=== PATIENT | female | born 1945 | race Caucasian/White ===

== ENCOUNTER 2018-08-05 15:54 | Outpatient (CLI) | payer MEDICARE | END 2018-08-05 15:55 | disposition home or self-care (01) | LOC: BICMAMMO 15:54 | PROVIDERS: ATTEND Internal Medicine Geriatric Medicine | DX: Z12.31 Encounter for screening mammogram for malignant neoplasm of breast (principal) | CPT/HCPCS: 77063; 77067 ==

== ENCOUNTER 2018-11-25 14:22 | Outpatient (CLI) | payer MEDICARE ==
--- NOTE | 2018-11-25 16:18 | BD ---
Exam: DEXA Bone Density 11/25/18 COMPARISON: 03/28/16. HISTORY: 73-year-old postmenopausal female for screening. Lumbar Spine: BMD (g/cm2) L1 0.798 T-Score: -1.7 L2 0.806 T-Score: -2.0 L3 0.936 T-Score: -1.3 L4 0.987 T-Score: -0.7 L1-L4 0.881 T-Score: -1.5 Left Femoral Neck: 0.633 T-Score: -1.9 Total Proximal Femur: 0.835 T-Score: -0.9 Impression: Osteopenia. This patient has a ten year WHO fracture risk of a major osteoporotic fracture of 13% and hip fracture of 3.3%. POS: ROBERT
== END 2018-11-25 14:23 | disposition home or self-care (01) ==
LOC: BICMAMMO 14:22
PROVIDERS: ATTEND Internal Medicine Geriatric Medicine
DX: Z13.820 Encounter for screening for osteoporosis (principal); M85.89 Other specified disorders of bone density and structure, multiple sites; Z78.0 Asymptomatic menopausal state
CPT/HCPCS: 77080

== ENCOUNTER 2019-01-01 10:22 | Outpatient (CLI) | payer MEDICARE ==
--- NOTE | 2019-01-01 12:11 | MRI ---
EXAM: Left shoulder MRI without contrast: HISTORY: Impingement syndrome of left shoulder, left shoulder pain, injury from a fall in October 2018 COMPARISON: None FINDINGS: Multiplanar, multisequence MRI examination of the shoulder is performed. A C joint:Very severe A/C joint arthrosis with some distention of the A/C joint with extensive fluid within the subacromial and subdeltoid bursa with some nodular debris within the subacromial portion possibly representing some component of synovitis. Supraspinatus tendon: Large irregular full-thickness tear with some probable associated granulation t issue with a fairly large greater tuberosity subchondral cyst underlying the insertion. Infraspinatus tendon: Undersurface delaminating tear with associated tendinopathy Biceps tendon: Intact. Subscapularis tendon: Small undersurface partial-thickness tear Rotator cuff muscles: Mild to moderate muscle volume loss of the supraspinatus muscle. Glenoid labrum: No evidence for labral tear. Multiple subchondral cysts of the inferior glenoid. IMPRESSION: Irregular full-thickness essentially nonretracted tear of the supraspinatus tendon with associated mi [id number] muscle volume loss. Large amount of bursal fluid with some nodular debris possibly associated synovitis with marked A/C joint arthrosis. Undersurface and minimal delaminating tear of t he infraspinatus tendon. Inferior glenoid subchondral cystic change.
== END 2019-01-01 10:23 | disposition home or self-care (01) ==
LOC: TBSIIMAG 10:22
PROVIDERS: ATTEND Orthopaedic Surgery
DX: M75.42 Impingement syndrome of left shoulder (principal); M75.102 Unspecified rotator cuff tear or rupture of left shoulder, not specified as traumatic; M19.012 Primary osteoarthritis, left shoulder; M65.812 Other synovitis and tenosynovitis, left shoulder